=== PATIENT | female | born 1955 | race Caucasian/White ===

== ENCOUNTER → 2018-11-10 | Day surgery (SDC) | payer OTHER ==
--- NOTE | 2018-11-11 19:32 | PATH ---
Cytology Non-Gynecological Report Patient Name: BIJU CODY [facility]. Rec. #: [id number] /Age/Gender: 1955 (Age: 63) / F Account: [id number] Location: RADIOLOGY INTER Taken: 11/10/2018 Received: 11/10/2018 Reported: 11/11/2018 Physicians: Kanu Plaza M.D. Specimen(s) Received RIGHT LOBE THYROID FNA Clinical History Right lobe, 1.08 x 0.5 x 0.6 cm Final Diagnosis THYROID, RIGHT LOBE, FINE NEEDLE ASPIRATION: SATISFACTORY FOR EVALUATION. BETHES[place] III: ATYPIA OF UNDERTERMINED SIGNIFICANCE/FOLLICULAR LESION OF UNDETERMINED SIGNIFICANCE. FEW CLUSTERS OF ATYPICAL FOLLICULAR CELLS WITH MILD NUCLEAR ENLARGEMENT, SUBTLE NUCLEAR GROOVES, AND FOCAL CROWDING. RARE LYMPHOID TANGLES AND THIN COLLOID PRESENT. Comment: Suggest clinical/radiologic correlation and repeat sampling after an appropriate interval (3-6 months) with material for molecular studies, as clinically warranted. Electronically Signed Lillian Vega M.D. Gross Description Received are eight direct smears, four of which are air-dried and Diff-Quik stained, and four of which are alcohol fixed and Pap stained. Also received is 20 ml of bloody formalin from which one cellblock is prepared.
== END | disposition home or self-care (01) ==
LOC: JRADIR 09:24
PROVIDERS: ATTEND Family Medicine
PROC: 0G9H3ZX Drainage of Right Thyroid Gland Lobe, Percutaneous Approach, Diagnostic (ICD-10-PCS; principal; 2018-11-10)
DX: E04.1 Nontoxic single thyroid nodule (principal)
CPT/HCPCS: 76942; 88173; 88305-TC